=== PATIENT | male | born 1960 | race Caucasian/White ===

== ENCOUNTER 2023-04-12 11:52 | Emergency (ER) | payer OTHER ==
[~2023-04-12] VITALS: Ht 175.3 cm; Wt 105.7 kg
[2023-04-12] MEDS ORDERED: FUROSEMIDE 20 MG TAB PO ONE (13:00)
[2023-04-12] MEDS ORDERED: ONDANSETRON HCL INJ 2MG/ML 2ML 2 MG/ML VIAL IV PRN (13:00)
[2023-04-12 13:07] LABS: EOSINOPHILS # (AUTO) 0.3 (0.0-0.4); EOSINOPHILS % 11.9 % (0.0-6.0); LYMPHOCYTES # (AUTO) 0.4 (1.0-3.2); LYMPHOCYTES % 18.6 % (18.0-39.1); MEAN CORPUSCULAR HEMOGLOBIN 35.1 pg (28-32); MEAN CORPUSCULAR HGB CONC 35.3 g/dL (31-35); MEAN CORPUSCULAR VOLUME 99.5 fL (81-99); MONOCYTES # (AUTO) 0.5 (0.2-0.8); MONOCYTES % 21.2 % (4.4-11.3); NEUTROPHILS # (AUTO) 1.1 (2.1-6.9); NEUTROPHILS % 47.5 % (38.7-80.0); RED BLOOD COUNT 1.85 x10e6/uL (4.3-5.7); RED CELL DISTRIBUTION WIDTH 14.1 % (11.7-14.4)
[2023-04-12 13:12] LABS: PLATELET COUNT 216 x10e3/uL (140-360)
[2023-04-12] MEDS ORDERED: Vancomycin IV 1 GM in SODIUM CHLORIDE 0.9% 250ML 250 ML IV SCH (13:15)
[2023-04-12 13:16] LABS: HEMATOCRIT 18.4 % (38.2-49.6); HEMOGLOBIN 6.5 g/dL (14.0-18.0)
[2023-04-12 13:53] LABS: ALANINE AMINOTRANSFERASE 99 IU/L (0-55); ALBUMIN 2.5 g/dL (3.5-5.0); ALBUMIN/GLOBULIN RATIO 0.7 (0.8-2.0); ALKALINE PHOSPHATASE 385 IU/L (40-150); ANION GAP 23.1 mmol/L (8-16); CALCIUM 7.9 mg/dL (8.4-10.2); CARBON DIOXIDE 15 mmol/L (22-29); CHLORIDE 102 mmol/L (98-107); CREATININE, SERUM 15.45 mg/dL (0.72-1.25); GLUCOSE 132 mg/dL (74-118); POTASSIUM 5.1 mmol/L (3.5-5.1); SODIUM 135 mmol/L (136-145)
[2023-04-12] MEDS ORDERED: SODIUM CHLORIDE 0.9% 250ML 250 ML IV ONE (14:00)
[2023-04-12 14:04] LABS: BLOOD UREA NITROGEN 142 mg/dL (7-26)
[2023-04-12] MEDS ORDERED: HYDROCODONE/APAP 5MG-325MG TAB PO PRN (14:30)
[2023-04-12 15:37] LABS: PROTHROMBIN TIME 13.7 seconds (11.9-14.5)
[2023-04-12 15:38] LABS: PARTIAL THROMBOPLASTIN TIME 40.5 seconds (23.8-35.5)
[2023-04-12 15:44] LABS: ANION GAP 23.9 mmol/L (8-16); CALCIUM 8.1 mg/dL (8.4-10.2); CARBON DIOXIDE 16 mmol/L (22-29); CHLORIDE 100 mmol/L (98-107); CREATININE, SERUM 14.94 mg/dL (0.72-1.25); GLUCOSE 108 mg/dL (74-118); POTASSIUM 4.9 mmol/L (3.5-5.1); SODIUM 135 mmol/L (136-145)
[2023-04-12 15:45] LABS: BLOOD UREA NITROGEN 138 mg/dL (7-26)
[2023-04-12 18:00] LABS: EOSINOPHILS % (MANUAL) 12 % (0-7); LYMPHOCYTES % (MANUAL) 26 % (19-48); MONOCYTES % (MANUAL) 14 % (3.4-9.0); NEUTROPHILS % (MANUAL) 48 % (40-74); PLATELET ESTIMATE ADEQUATE; PLATELET MORPHOLOGY COMMENT NORMAL; RBC MORPHOLOGY COMMENT NORMAL
[2023-04-12 19:40] VITALS: O2SAT 100
== END 2023-04-12 19:50 | disposition other institution (70) ==
LOC: ER 11:57
DX: L03.116 Cellulitis of left lower limb (principal); L03.115 Cellulitis of right lower limb; D64.9 Anemia, unspecified; C34.90 Malignant neoplasm of unspecified part of unspecified bronchus or lung; D84.9 Immunodeficiency, unspecified; I10 Essential (primary) hypertension; E78.5 Hyperlipidemia, unspecified; M54.9 Dorsalgia, unspecified; G89.29 Other chronic pain; Z96.651 Presence of right artificial knee joint; Z20.822 Contact with and (suspected) exposure to COVID-19
CPT/HCPCS: 36415; 71045; 80048; 80053; 83880; 85025; 85379; 85610; 85730; 86850; 86900; 86920; 87040; 93005; 93970; 99284; J2405; J2543; J3370; J7050; P9016; U0002